=== PATIENT | male | born 1985 | race Two or more races ===

== ENCOUNTER 2017-11-24 04:17 | Emergency (ER) | payer OTHER ==
[~2017-11-24] VITALS: Ht 170.2 cm; Wt 109.1 kg
[2017-11-24 05:06] VITALS: BP 134/87
[2017-11-24] MEDS ORDERED: LORAZEPAM 1MG TABLET PO ONE (06:45)
== END 2017-11-24 07:00 | disposition home or self-care (01) ==
LOC: ER 04:17
DX: F41.9 Anxiety disorder, unspecified (principal); G40.909 Epilepsy, unspecified, not intractable, without status epilepticus; F12.10 Cannabis abuse, uncomplicated; F17.200 Nicotine dependence, unspecified, uncomplicated; F31.9 Bipolar disorder, unspecified
CPT/HCPCS: 99283; 99406

== ENCOUNTER 2017-11-28 23:35 | Emergency (ER) | payer OTHER ==
[~2017-11-28] VITALS: Ht 167.6 cm; Wt 91.0 kg
[2017-11-28 23:46] VITALS: BP 131/90
== END 2017-11-29 01:00 | disposition home or self-care (01) ==
LOC: ER 23:46
DX: R51 Headache (principal); Z53.21 Procedure and treatment not carried out due to patient leaving prior to being seen by health care provider
CPT/HCPCS: 99283